=== PATIENT | male | born 1990 | race Caucasian/White ===

== ENCOUNTER 2021-04-09 00:22 | Emergency (ER) | payer SELFPAY ==
[~2021-04-09] VITALS: Ht 188 cm; Wt 97.5 kg
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
[2021-04-09] MEDS ORDERED: HYDROCODONE/APAP 5/325MG TABLET ONE (01:17)
[2021-04-09] MEDS ORDERED: TDAP [DIPH/PERTUSSIS/TET] 0.5 ML VIAL IM ONE ×2 (01:17→01:30)
--- NOTE | 2021-04-09 01:20 | NUR ---
xray at bedside
[2021-04-09] MEDS ORDERED: HYDROCODONE/APAP 5/325MG TABLET PO ONE (01:30)
--- NOTE | 2021-04-09 02:25 | NUR ---
emt at bedside for ulnar gutter on rt hand
--- NOTE | 2021-04-09 02:27 | NUR ---
xray at bedside
[2021-04-09] MEDS ORDERED: LIDOCAINE 1% INJ 50 ML MDV IJ ONE (02:31)
--- NOTE | 2021-04-09 02:32 | NUR ---
called nathen to have images read
--- NOTE | 2021-04-09 03:00 | NUR ---
emt at bedside for baseball splint placement on lt middle finger
--- NOTE | 2021-04-09 03:00 | NUR ---
Guille richards in ED - 04/09/21 at 0346 by MEÑO emt at bedside for baseball splint placement on rt middle finger
[2021-04-09] MEDS ORDERED: HYDR-3972 PO (03:07)
[2021-04-09] MEDS ORDERED: ONDA4TAB5 PO (03:16)
--- NOTE | 2021-04-09 03:46 | NUR ---
Patient discharged to home in stable condition. Written and verbal after care instructions given. Patient verbalizes understanding of instruction. Pt ambulatory with a steady gait
[2021-04-09 03:47] VITALS: BP 125/78
== END 2021-04-09 03:47 | disposition home or self-care (01) ==
LOC: ER 00:22
DX: S62.336A Displaced fracture of neck of fifth metacarpal bone, right hand, initial encounter for closed fracture (principal); S62.613A Displaced fracture of proximal phalanx of left middle finger, initial encounter for closed fracture; S60.512A Abrasion of left hand, initial encounter; S60.511A Abrasion of right hand, initial encounter; S90.411A Abrasion, right great toe, initial encounter; V19.9XXA Pedal cyclist (driver) (passenger) injured in unspecified traffic accident, initial encounter; Y93.89 Activity, other specified; Y92.89 Other specified places as the place of occurrence of the external cause; Y99.8 Other external cause status
CPT/HCPCS: 26605; 29130; 73130 ×3; 73630; 90471; 90715; 99285; J3490